=== PATIENT | female | born 1945 | race Asian ===

== ENCOUNTER 2022-08-19 08:51 | Outpatient (CLI) | payer OTHER, MEDICAID | END 2022-08-19 20:15 | disposition home or self-care (01) | LOC: SMI 08:51 | PROVIDERS: ATTEND Psychiatry & Neurology Neurology with Special Qualifications in Child Neurology | DX: G31.89 Other specified degenerative diseases of nervous system (principal); G93.89 Other specified disorders of brain; F03.90 Unspecified dementia, unspecified severity, without behavioral disturbance, psychotic disturbance, mood disturbance, and anxiety | CPT/HCPCS: 70551 ==

== ENCOUNTER 2022-12-01 20:14 | Inpatient (IN) | payer OTHER, MEDICAID ==
[~2022-12-01] VITALS: Ht 162.6 cm; Wt 48.5 kg
[2022-12-01 20:20] VITALS: BP_SYST 183
[2022-12-01] MEDS ORDERED: D5NS 1,000 ML IV ONE (20:30)
[2022-12-01 20:54] LABS: BASOPHILS # (AUTO) 0.1 K/uL (0.0-0.2); BASOPHILS % (AUTO) 0.5 % (0.0-2.0); EOSINOPHILS # (AUTO) 0.3 K/uL (0.0-0.4); HEMATOCRIT 37.3 % (36-48); HEMOGLOBIN 12.1 g/dL (12.0-16.0); LYMPHOCYTES # (AUTO) 1.4 K/uL (1.0-5.5); LYMPHOCYTES % (AUTO) 9.7 % (20.5-51.5); MEAN CORPUSCULAR HEMOGLOBIN 30 pg (27-31); MEAN CORPUSCULAR HGB CONC 33 % (32-36); MEAN CORPUSCULAR VOLUME 92 fL (79.0-98.0); MONOCYTES # (AUTO) 1.1 K/uL (0.0-1.0); MONOCYTES % (AUTO) 7.2 % (1.7-9.3); NEUTROPHILS # (AUTO) 11.8 K/uL (1.8-7.7); NEUTROPHILS % (AUTO) 80.6 % (40.0-70.0); RED BLOOD CELL COUNT(AUTO) 4.06 MIL/uL (4.2-6.2); RED CELL DISTRIBUTION WIDTH 14.2 % (9.0-15.0); WHITE BLOOD COUNT (AUTO) 14.6 K/uL (4.8-10.8)
[2022-12-01 21:07] LABS: ALANINE AMINOTRANSFERASE 12 U/L (12-78); ANION GAP 7 (5-15); ASPARTATE AMINOTRANSFERASE 15 U/L (10-37); CALCIUM 9.1 mg/dL (8.4-11.0); CHLORIDE 97 mmol/L (98-107); CREATININE 0.78 mg/dL (0.55-1.30); GLUCOSE 167 mg/dL (70-99); TOTAL BILIRUBIN 0.3 mg/dL (0.0-1.0); UREA NITROGEN, BLOOD 16 mg/dL (8-21)
[2022-12-01 21:21] LABS: PLATELET COUNT (AUTO) 729 K/uL (130-430)
[2022-12-02 02:26] LABS: BILIRUBIN,URINE NEGATIVE (NEGATIVE); BLOOD, URINE NEGATIVE (NEGATIVE); CLARITY/URINE CLEAR (CLEAR); COLOR,URINE YELLOW (YELLOW); GLUCOSE,URINE NEGATIVE (NEGATIVE); KETONES,URINE NEGATIVE (NEGATIVE); LEUKOCYTE ESTERASE ,URINE NEGATIVE (NEGATIVE); NITRITE, URINE NEGATIVE (NEGATIVE); PROTEIN URINE NEGATIVE (NEGATIVE); UROBILINOGEN,URINE 0.2 (0.2-1.0)
[2022-12-02] MEDS ORDERED: DOCU-156 PO ×2 (02:46→08:54)
[2022-12-02] MEDS ORDERED: INSU100V9 SQ ×2 (02:46→08:54)
[2022-12-02] MEDS ORDERED: METF-380 PO ×2 (02:46→08:54)
[2022-12-02] MEDS ORDERED: DONE10TA44 PO ×2 (02:46→08:54)
[2022-12-02] MEDS ORDERED: NEU300 PO ×2 (02:46→08:54)
[2022-12-02] MEDS ORDERED: GLIM4TAB PO ×2 (02:46→08:54)
[2022-12-02] MEDS ORDERED: METO25TA6 PO (02:46)
[2022-12-02] MEDS ORDERED: LIP80 PO ×2 (02:46→08:54)
[2022-12-02] MEDS ORDERED: MELA1TAB14 PO (02:46)
[2022-12-02] MEDS ORDERED: LOSA50TA3 PO ×2 (02:46→08:54)
[2022-12-02] MEDS ORDERED: CLOP75TA32 PO ×2 (02:46→08:54)
[2022-12-02] MEDS ORDERED: ALPR0.5T PO (02:46)
[2022-12-02] MEDS ORDERED: ESCI10TA PO ×2 (02:46→08:54)
[2022-12-02] MEDS ORDERED: HALOPERIDOL LACTATE 5 MG/ML VIAL IVP ONE (03:15)
[2022-12-02] MEDS ORDERED: DIPHENHYDRAMINE INJ 50 MG/ML VIAL IVP ONE (03:15)
[2022-12-02] MEDS ORDERED: GLUCOSE (DEXTROSE) ORAL GEL -Adults PO PRN (07:30)
[2022-12-02] MEDS ORDERED: DEXTROSE 50%-WATER 50 ML DISP.SYRIN IVP PRN (07:30)
[2022-12-02] MEDS ORDERED: D5W 1,000 ML IV PRN (07:30)
[2022-12-02] MEDS ORDERED: ZOLPIDEM TARTRATE 5 MG TABLET PO PRN (08:00)
[2022-12-02] MEDS ORDERED: MUPIROCIN 2% TOPICAL OINTMENT 22 GM NS PRN (08:00)
[2022-12-02] MEDS ORDERED: ONDANSETRON HCL 4 MG/2 ML VIAL IVP PRN (08:00)
[2022-12-02] MEDS ORDERED: DOCUSATE SODIUM 100 MG CAPSULE PO PRN (08:00)
[2022-12-02] MEDS: NACL 0.9% 1,000 ML IV SCH (08:00)
[2022-12-02] MEDS ORDERED: MAGNESIUM SULFATE 50 ML IV PRN (08:00)
[2022-12-02] MEDS ORDERED: NALOXONE HCL 0.4 MG/ML AMP (NARCAN) IVP PRN ×2 (08:00)
[2022-12-02] MEDS ORDERED: LORazepam 2 MG/ML VIAL IVP PRN (08:00)
[2022-12-02] MEDS ORDERED: ACETAMINOPHEN 325 MG TABLET PO PRN (08:00)
[2022-12-02] MEDS ORDERED: POTASSIUM CHLORIDE 20 MEQ TAB.PRT.SR PO PRN (08:00)
[2022-12-02] MEDS ORDERED: MELA1LIQ PO (08:54)
[2022-12-02] MEDS ORDERED: METO25TA3 PO (08:54)
[2022-12-02] MEDS ORDERED: GLIMEPIRIDE 2 MG TABLET PO SCH (09:00)
[2022-12-02] MEDS: CLOPIDOGREL BISULFATE 75 MG TABLET PO SCH (09:57)
[2022-12-02] MEDS: METOPROLOL TARTRATE 25 MG TABLET PO SCH ×2 (09:58→20:51)
[2022-12-02] MEDS: GABAPENTIN 300 MG CAPSULE PO SCH ×2 (09:58→20:51)
[2022-12-02] MEDS ORDERED: CITALOPRAM HYDROBROMIDE 20 MG TABLET PO ONE (10:00)
[2022-12-02] MEDS ORDERED: LOSARTAN POTASSIUM 50 MG TABLET (COZAAR) ONE (10:12)
[2022-12-02] MEDS: LOSARTAN POTASSIUM 50 MG TABLET (COZAAR) PO SCH (10:13)
[2022-12-02] MEDS: INSULIN REGULAR, HUMAN 100 UNITS/ML, 3 ML VIAL (humuLIN R) SUBCUT PRN ×2 (12:53→21:02)
[2022-12-02 16:52] VITALS: BP_SYST 121
[2022-12-02] MEDS ORDERED: IPRATROPIUM/ALBUTEROL SULFATE 3 ML AMPUL.NEB (DUONEB) INH PRN (17:15)
[2022-12-02] MEDS ORDERED: AZITHROMYCIN 250 MG TABLET PO ONE (17:15)
[2022-12-02] MEDS ORDERED: cefTRIAXone 1 GM in D5W 50 ML IV SCH (17:15)
[2022-12-02 20:16] VITALS: BP_SYST 119
[2022-12-02] MEDS: DONEPEZIL HCL 5 MG TABLET (ARICEPT) PO SCH (20:50)
[2022-12-03] VITALS: BP_SYST 123
[2022-12-03] MEDS: NACL 0.9% 1,000 ML IV SCH ×3 (00:40→20:46)
[2022-12-03 06:09] LABS: BASOPHILS # (AUTO) 0.1 K/uL (0.0-0.2); BASOPHILS % (AUTO) 0.6 % (0.0-2.0); EOSINOPHILS # (AUTO) 0.2 K/uL (0.0-0.4); EOSINOPHILS % (AUTO) 2.4 % (0.0-4.0); HEMATOCRIT 32.8 % (36-48); HEMOGLOBIN 11.1 g/dL (12.0-16.0); LYMPHOCYTES # (AUTO) 1.6 K/uL (1.0-5.5); LYMPHOCYTES % (AUTO) 16.9 % (20.5-51.5); MEAN CORPUSCULAR HEMOGLOBIN 31 pg (27-31); MEAN CORPUSCULAR HGB CONC 34 % (32-36); MEAN CORPUSCULAR VOLUME 91 fL (79.0-98.0); MONOCYTES # (AUTO) 0.7 K/uL (0.0-1.0); NEUTROPHILS # (AUTO) 7.1 K/uL (1.8-7.7); NEUTROPHILS % (AUTO) 73.1 % (40.0-70.0); PLATELET COUNT (AUTO) 637 K/uL (130-430); RED CELL DISTRIBUTION WIDTH 14.1 % (9.0-15.0)
[2022-12-03 06:29] LABS: ANION GAP 5 (5-15); CALCIUM 8.7 mg/dL (8.4-11.0); CHLORIDE 104 mmol/L (98-107); CREATININE 0.84 mg/dL (0.55-1.30); GLUCOSE 83 mg/dL (70-99); UREA NITROGEN, BLOOD 11 mg/dL (8-21)
[2022-12-03 07:36] LABS: WHITE BLOOD COUNT (AUTO) 9.7 K/uL (4.8-10.8)
[2022-12-03 08:03] VITALS: BP_SYST 133
[2022-12-03] MEDS: cefTRIAXone 1 GM in D5W 50 ML IV SCH (09:48)
[2022-12-03] MEDS: CITALOPRAM HYDROBROMIDE 20 MG TABLET PO SCH (09:53)
[2022-12-03] MEDS: AZITHROMYCIN 250 MG TABLET PO SCH (09:54)
[2022-12-03] MEDS: GABAPENTIN 300 MG CAPSULE PO SCH ×2 (09:54→20:45)
[2022-12-03] MEDS: CLOPIDOGREL BISULFATE 75 MG TABLET PO SCH (09:55)
[2022-12-03] MEDS: LOSARTAN POTASSIUM 50 MG TABLET (COZAAR) PO SCH (10:04)
[2022-12-03] MEDS: METOPROLOL TARTRATE 25 MG TABLET PO SCH ×2 (10:06→20:46)
[2022-12-03 11:09] VITALS: BP_SYST 140
[2022-12-03] MEDS: INSULIN REGULAR, HUMAN 100 UNITS/ML, 3 ML VIAL (humuLIN R) SUBCUT PRN ×3 (12:04→20:57)
[2022-12-03 19:05] VITALS: BP_SYST 145
[2022-12-03 20:25] VITALS: BP_SYST 148
[2022-12-03] MEDS: DONEPEZIL HCL 5 MG TABLET (ARICEPT) PO SCH (20:45)
[2022-12-04 01:21] VITALS: BP_SYST 132
[2022-12-04 07:29] LABS: BASOPHILS % (AUTO) 0.3 % (0.0-2.0); EOSINOPHILS # (AUTO) 0.2 K/uL (0.0-0.4); EOSINOPHILS % (AUTO) 1.3 % (0.0-4.0); HEMATOCRIT 34.5 % (36-48); HEMOGLOBIN 11.4 g/dL (12.0-16.0); LYMPHOCYTES % (AUTO) 6.9 % (20.5-51.5); MEAN CORPUSCULAR HEMOGLOBIN 31 pg (27-31); MEAN CORPUSCULAR HGB CONC 33 % (32-36); MEAN CORPUSCULAR VOLUME 92 fL (79.0-98.0); MONOCYTES # (AUTO) 0.5 K/uL (0.0-1.0); MONOCYTES % (AUTO) 3.4 % (1.7-9.3); NEUTROPHILS # (AUTO) 12.1 K/uL (1.8-7.7); NEUTROPHILS % (AUTO) 88.1 % (40.0-70.0); PLATELET COUNT (AUTO) 596 K/uL (130-430); RED BLOOD CELL COUNT(AUTO) 3.74 MIL/uL (4.2-6.2); RED CELL DISTRIBUTION WIDTH 14.3 % (9.0-15.0)
[2022-12-04 07:45] LABS: WHITE BLOOD COUNT (AUTO) 13.8 K/uL (4.8-10.8)
[2022-12-04 07:53] LABS: ANION GAP 8 (5-15); CALCIUM 8.4 mg/dL (8.4-11.0); CHLORIDE 102 mmol/L (98-107); CREATININE 0.81 mg/dL (0.55-1.30); GLUCOSE 135 mg/dL (70-99); UREA NITROGEN, BLOOD 12 mg/dL (8-21)
[2022-12-04 08:00] VITALS: BP_SYST 122
[2022-12-04] MEDS: GABAPENTIN 300 MG CAPSULE PO SCH ×2 (08:51→22:26)
[2022-12-04] MEDS: CLOPIDOGREL BISULFATE 75 MG TABLET PO SCH (08:51)
[2022-12-04] MEDS: LOSARTAN POTASSIUM 50 MG TABLET (COZAAR) PO SCH (08:53)
[2022-12-04] MEDS: METOPROLOL TARTRATE 25 MG TABLET PO SCH ×2 (08:53→22:27)
[2022-12-04] MEDS: AZITHROMYCIN 250 MG TABLET PO SCH (08:53)
[2022-12-04] MEDS: CITALOPRAM HYDROBROMIDE 20 MG TABLET PO SCH (08:58)
[2022-12-04] MEDS: cefTRIAXone 1 GM in D5W 50 ML IV SCH (09:08)
[2022-12-04] MEDS: INSULIN REGULAR, HUMAN 100 UNITS/ML, 3 ML VIAL (humuLIN R) SUBCUT PRN ×3 (11:31→17:14)
[2022-12-04 20:02] VITALS: BP_SYST 103
[2022-12-04] MEDS: DONEPEZIL HCL 5 MG TABLET (ARICEPT) PO SCH (22:26)
[2022-12-05] VITALS (7 sets, daily range): BP systolic 116–157
[2022-12-05] MEDS: NACL 0.9% 1,000 ML IV SCH ×2 (02:40→19:20)
[2022-12-05 06:27] LABS: BASOPHILS # (AUTO) 0.1 K/uL (0.0-0.2); BASOPHILS % (AUTO) 0.6 % (0.0-2.0); EOSINOPHILS # (AUTO) 0.4 K/uL (0.0-0.4); EOSINOPHILS % (AUTO) 3.8 % (0.0-4.0); HEMATOCRIT 27.5 % (36-48); HEMOGLOBIN 9.5 g/dL (12.0-16.0); LYMPHOCYTES # (AUTO) 1.4 K/uL (1.0-5.5); MEAN CORPUSCULAR HEMOGLOBIN 31 pg (27-31); MEAN CORPUSCULAR HGB CONC 35 % (32-36); MEAN CORPUSCULAR VOLUME 91 fL (79.0-98.0); MONOCYTES # (AUTO) 0.7 K/uL (0.0-1.0); MONOCYTES % (AUTO) 6.6 % (1.7-9.3); NEUTROPHILS # (AUTO) 7.7 K/uL (1.8-7.7); PLATELET COUNT (AUTO) 513 K/uL (130-430); RED BLOOD CELL COUNT(AUTO) 3.03 MIL/uL (4.2-6.2); RED CELL DISTRIBUTION WIDTH 14.3 % (9.0-15.0); WHITE BLOOD COUNT (AUTO) 10.3 K/uL (4.8-10.8)
[2022-12-05 06:43] LABS: ANION GAP 6 (5-15); CALCIUM 8.1 mg/dL (8.4-11.0); CHLORIDE 103 mmol/L (98-107); CREATININE 0.88 mg/dL (0.55-1.30); GLUCOSE 119 mg/dL (70-99); UREA NITROGEN, BLOOD 14 mg/dL (8-21)
[2022-12-05] MEDS: CITALOPRAM HYDROBROMIDE 20 MG TABLET PO SCH (09:22)
[2022-12-05] MEDS: GABAPENTIN 300 MG CAPSULE PO SCH ×2 (09:22→21:47)
[2022-12-05] MEDS: AZITHROMYCIN 250 MG TABLET PO SCH (09:23)
[2022-12-05] MEDS: CLOPIDOGREL BISULFATE 75 MG TABLET PO SCH (09:23)
[2022-12-05] MEDS: METOPROLOL TARTRATE 25 MG TABLET PO SCH ×2 (09:23→21:48)
[2022-12-05] MEDS: LOSARTAN POTASSIUM 50 MG TABLET (COZAAR) PO SCH (09:25)
[2022-12-05] MEDS: cefTRIAXone 1 GM in D5W 50 ML IV SCH (09:26)
[2022-12-05] MEDS: INSULIN REGULAR, HUMAN 100 UNITS/ML, 3 ML VIAL (humuLIN R) SUBCUT PRN ×2 (12:36→21:53)
[2022-12-05] MEDS: DONEPEZIL HCL 5 MG TABLET (ARICEPT) PO SCH (21:47)
== END 2022-12-05 22:20 | DRG 637 ==
LOC: SED 20:14 → STU 12-02 03:22 → SMU 12-03 06:55
PROVIDERS: ADMIT General Practice; ATTEND General Practice
DX: E11.649 Type 2 diabetes mellitus with hypoglycemia without coma (principal); G93.41 Metabolic encephalopathy; E44.1 Mild protein-calorie malnutrition; E87.1 Hypo-osmolality and hyponatremia; Z68.1 Body mass index [BMI] 19.9 or less, adult; E11.65 Type 2 diabetes mellitus with hyperglycemia; Z20.822 Contact with and (suspected) exposure to COVID-19; E78.5 Hyperlipidemia, unspecified; E11.42 Type 2 diabetes mellitus with diabetic polyneuropathy; G30.9 Alzheimer's disease, unspecified; F02.80 Dementia in other diseases classified elsewhere, unspecified severity, without behavioral disturbance, psychotic disturbance, mood disturbance, and anxiety; I10 Essential (primary) hypertension; I25.10 Atherosclerotic heart disease of native coronary artery without angina pectoris; F32.A Depression, unspecified; F41.9 Anxiety disorder, unspecified; R26.81 Unsteadiness on feet; Z86.718 Personal history of other venous thrombosis and embolism; Z79.01 Long term (current) use of anticoagulants; Z79.899 Other long term (current) drug therapy; Z79.4 Long term (current) use of insulin
CPT/HCPCS: 36415; 71045; 80048; 80053; 81003; 82962; 83037; 83735; 85025; 87081; 93005; 97110-GP; 97112-GP; 97116-GP; 97530-GP; 99285; G0378; J0696; J1200; J1630; J1815; J7060; Q0144